=== PATIENT | male | born 1935 | race American Indian/Alaskan Native ===

== ENCOUNTER 2020-05-17 15:26 | Emergency (ER) | payer MEDICARE, OTHER ==
--- NOTE | 2020-05-17 15:34 | Event Note ---
ED Screening Note Date of service: 05/17/20 Time: 15:34 ED Screening Note: Patient presents with hyperglycemia over the past week with no prior history of diabetes. States he was at [facility] recently and was discharged on Metformin but it is still high. States he feels "wobbly". Denies other complaints. Well-appearing, nontoxic, no distress on my exam. This initial assessment/diagnostic orders/clinical plan/treatment(s) is/are subject to change based on patients health status, clinical progression and re- assessment by fellow clinical providers in the ED. Further treatment and workup at subsequent clinical providers discretion. Patient/guardian urged not to elope from the ED as their condition may be serious if not clinically assessed and managed. Initial orders include: Labs
[2020-05-17 16:05] LABS: Basophils % (Auto) 0.5 % (0.0-1.8); Eosinophils # (Auto) 0.1 K/mm3 (0.0-0.4); Eosinophils % (Auto) 1.4 % (0.0-4.3); Hematocrit 42.5 % (35.5-45.6); Hemoglobin 13.5 gm/dl (11.8-15.2); Lymphocytes # (Auto) 1.9 K/mm3 (1.2-5.4); Lymphocytes % (Auto) 19.8 % (13.4-35.0); Mean Corpuscular HGB Conc 32 % (32-34); Mean Corpuscular Volume 75 fl (84-94); Monocytes # (Auto) 0.5 K/mm3 (0.0-0.8); Monocytes % (Auto) 5.9 % (0.0-7.3); Platelet Count 171 K/mm3 (140-440); Red Cell Distribution Width 14.2 % (13.2-15.2)
[2020-05-17 16:24] LABS: Bilirubin,Urine NEG (Negative); Blood,Urine NEG (Negative); Color,Urine Yellow (Yellow); Mucus,Urine FEW /HPF; Protein,Urine <15 mg/dL mg/dL (Negative); Urobilinogen,Urine < 2.0 mg/dL (<2.0)
[2020-05-17 16:26] LABS: Alanine Aminotransferase 49 units/L (7-56); Albumin 4.4 g/dL (3.9-5); BUN/Creatinine Ratio 19; Blood Urea Nitrogen 27 mg/dL (9-20); Calcium 9.7 mg/dL (8.4-10.2); Hemolysis Index 3
[2020-05-17] MEDS ORDERED: INSULIN REGULAR, HUMAN 100 UNITS/1 ML IV ONE (17:08)
[2020-05-17] MEDS ORDERED: SODIUM CHLORIDE 0.9% 1000 ML 1,000 ML IV ONE (17:08)
--- NOTE | 2020-05-17 17:12 | Emergency Department Report ---
ED General Adult HPI - General Chief complaint: Hyperglycemia Stated complaint: HIGH BLOOD SUGAR Time Seen by Provider: 05/17/20 15:33 Source: patient Mode of arrival: Ambulatory Limitations: No Limitations - History of Present Illness Initial comments: 84-year-old pleasant -[place] male presents emerge department complaining of continued hyperglycemia. To 3 days ago he was at [facility] emergency department where he was found to have diabetes and he was treated in the emergency department with with insulin he was discharged home on Metformin which he states he is taking 3 Metformin tablets but states his blood sugar has not yet regulated so he came to the emergency department again today to be reevaluated. He reports no fever, chills, sweats but does have little bit of fatigue. Reports no chest pain or palpitations. No nausea or vomiting just wanted to make sure that he was doing the right things and had made the right steps today. That you follow-up with his primary care provider for further management and treatment options of the diabetes Improves with: none, immobilization Worsens with: none, eating Associated Symptoms: malaise. denies: cough, diaphoresis, loss of appetite, nausea/vomiting, syncope, weakness - Related Data Allergies Allergy/AdvReac Type Severity Reaction Status Date / Time No Known Allergies Allergy Unverified 05/17/20 15:28 ED Review of Systems ROS: Stated complaint: HIGH BLOOD SUGAR Other details as noted in HPI Comment: All other systems reviewed and negative ED Past Medical Hx - Past Medical History Previous Medical History?: No - Surgical History Past Surgical History?: No - Social History Smoking Status: Never Smoker Substance Use Type: None ED Physical Exam - General Limitations: No Limitations General appearance: alert, in no apparent distress, other (Alert grays. Parrish is ambulatory under his own power no limitations) - Head Head exam: Present: atraumatic, normocephalic - Eye Eye exam: Present: normal appearance - ENT ENT exam: Present: mucous membranes moist - Neck Neck exam: Present: normal inspection - Respiratory Respiratory exam: Present: normal lung sounds bilaterally. Absent: respiratory distress - Cardiovascular Cardiovascular Exam: Present: regular rate, normal rhythm. Absent: systolic murmur, diastolic murmur, rubs, gallop - GI/Abdominal GI/Abdominal exam: Present: soft, normal bowel sounds - Rectal Rectal exam: Present: deferred - Extremities Exam Extremities exam: Present: normal inspection - Back Exam Back exam: Present: normal inspection - Neurological Exam Neurological exam: Present: alert, oriented X3, normal gait - Psychiatric Psychiatric exam: Present: normal affect, normal mood - Skin Skin exam: Present: warm, dry, intact, normal color. Absent: rash ED Course Vital Signs 05/17/20 05/17/20 15:34 22:00 Temperature 98.0 F 97.4 F L Pulse Rate 103 H 87 Respiratory 18 16 Rate Blood Pressure 156/80 Blood Pressure 129/79 [Left] O2 Sat by Pulse 99 98 Oximetry ED Medical Decision Making - Lab Data Result diagrams: 05/17/20 15:39 05/17/20 15:39 - Medical Decision Making This patient is a 84-year-old -Lithuanian male diagnosed with diabetes, presenting with apparent acute hyperglycemia. Differential diagnosis includes new onset diabetes, steroid or other medication use, secondary ingestion, reactive hyper glycemia. Consideration considered DKA versus hyperosmolar nonketotic state, sepsis is possible etiology of patient's current presentation. However given the current history and physical including current glucose level the current presentation is consistent with acute asymptomatic hyperglycemia. P radha to treat supportively no indication for further work-up at this time. Plan supportive care, was placed in a stretcher started on IV fluids and provided with insulin IV x3 units and reevaluated our following completion was found to have a blood sugar did decrease down to 230 Critical care attestation.: If time is entered above; I have spent that time in minutes in the direct care of this critically ill patient, excluding procedure time. ED Disposition Clinical Impression: Hyperglycemia due to type 2 diabetes mellitus Disposition: DC-01 TO HOME OR SELFCARE Is pt being admited?: No Does the pt Need Aspirin: No Condition: Stable Instructions: Complementary and Alternative Medical Therapies for Diabetes, Hyperglycemia, Type 2 Diabetes Mellitus, Self Care, Adult, Type 2 Diabetes Mellitus, Self Care, Adult, Chja-ce-Gjog, Prediabetes Eating Plan, Preventing Diabetes Mellitus Complications, Blood Glucose Monitoring, Adult, Diabetes Mellitus Type 2 in Adults (ED) Additional Instructions: Please take your medication as prescribed and follow up with your PCP for defini tive management of your DM Referrals: [facility] [Provider Group] - 3-5 Days YUMIKO GREENE MD [Staff Physician] - 3-5 Days PRIMARY MD JUAN [Primary Care Provider] - 3-5 Days
[2020-05-17 22:31] VITALS: BP 129/79
== END 2020-05-17 22:26 | disposition home or self-care (01) ==
LOC: ED 15:26
DX: E11.65 Type 2 diabetes mellitus with hyperglycemia (principal)
CPT/HCPCS: 36415; 80053; 81001; 82010; 82962; 85025; 96361; 96374; 99283; J7030; J1815

== ENCOUNTER 2021-01-13 14:50 | Emergency (ER) | payer MEDICARE ==
[2021-01-13 16:36] VITALS: BP 111/67
--- NOTE | 2021-01-13 17:15 | Emergency Department Report ---
ED General Adult HPI - General Chief complaint: Hyperglycemia Stated complaint: HYPERGLYCEMIA Time Seen by Provider: 01/13/21 16:59 Source: patient Mode of arrival: Ambulatory Limitations: No Limitations - History of Present Illness Initial comments: Patient presents secondary to elevated blood sugar. He has recently been on a Medrol Dosepak because of an illness. He has bilateral shoulder pain. He had been seen by orthopedic surgery and was given steroid injections in both shoulders. He was also given a Medrol Dosepak and an NSAID. Patient states that the right shoulder has continued to hurt. The left shoulder is gotten better. His sugars were elevated. That made him apprehensive. He decided to come here. He is also requesting that we write him a prescription for ibuprofen as that works better for pain for him than the diclofenac he was prescribed. Patient does not have polydipsia or polyuria at this point. He has no fevers or chills. There is no cough or congestion. The pain in the right shoulder just did not get any better with the steroid injection. The pain in the left shoulder did. There is no new trauma. The pain in the shoulder is described as a constant ache that is worse with any kind of movement. - Related Data Previous Rx's Medication Instructions Recorded Last Taken Type Ibuprofen [Motrin 400 MG tab] 400 mg PO Q8H PRN #30 tablet 01/13/21 Unknown Rx Allergies Allergy/AdvReac Type Severity Reaction Status Date / Time No Known Allergies Allergy Unverified 05/17/20 15:28 ED Review of Systems ROS: Stated complaint: HYPERGLYCEMIA Other details as noted in HPI Comment: All other systems reviewed and negative Constitutional: denies: fever Eyes: denies: vision change ENT: denies: throat pain Respiratory: denies: cough Cardiovascular: denies: chest pain Endocrine: denies: unexplained weight loss Gastrointestinal: denies: abdominal pain Genitourinary: denies: dysuria Musculoskeletal: as per HPI Skin: denies: rash Hematological/Lymphatic: denies: easy bruising ED Past Medical Hx - Past Medical History Previous Medical History?: Yes Additional medical history: Chronic shoulder pain and arthritis - Surgical History Past Surgical History?: No - Family History Family history: no significant - Social History Smoking Status: Never Smoker Substance Use Type: None - Medications Home Medications: Home Medications Medication Instructions Recorded Confirmed Last Taken Type Ibuprofen [Motrin 400 MG tab] 400 mg PO Q8H PRN #30 tablet 01/13/21 Unknown Rx ED Physical Exam - General Limitations: No Limitations, Other (Pulse ox was noted and normal. He is not hypoxic.) General appearance: alert, in no apparent distress - Head Head exam: Present: atraumatic, normocephalic, normal inspection - Eye Eye exam: Present: normal appearance, EOMI. Absent: scleral icterus - ENT ENT exam: Present: normal exam, normal orophraynx, normal external ear exam - Neck Neck exam: Present: normal inspection. Absent: meningismus - Respiratory Respiratory exam: Present: normal lung sounds bilaterally. Absent: respiratory distress - Cardiovascular Cardiovascular Exam: Present: regular rate, normal rhythm - GI/Abdominal GI/Abdominal exam: Present: soft. Absent: tenderness - Extremities Exam Extremities exam: Present: normal capillary refill, other (There is limited range of motion of the right shoulder. This is chronic.) - Back Exam Back exam: Absent: CVA tenderness (R), CVA tenderness (L) - Neurological Exam Neurological exam: Present: alert, oriented X3, normal gait. Absent: motor sensory deficit - Psychiatric Psychiatric exam: Present: normal affect, normal mood - Skin Skin exam: Present: warm, dry ED Course Vital Signs 01/13/21 16:29 Temperature 99.1 F Pulse Rate 111 H Respiratory 16 Rate Blood Pressure 111/67 [Left] O2 Sat by Pulse 96 Oximetry - Reevaluation(s) Reevaluation #1: 01/13/21 23:42 Glucose have been noted. Patient was discharged. ED Medical Decision Making - Medical Decision Making Patient presented secondary to elevated blood sugar. This was felt to be due to steroids. The sugar that we have obtained today is lower than what he had been at home. He does not seem to have polydipsia or polyuria suggestive of new onset diabetes. He is complaining of ongoing pain in the right shoulder. Why the steroid injection failed to help his pain on the right I do not know. He can follow with his orthopedic surgeon. There is no new trauma to suggest fracture. Has no fevers. I do not believe this represents a septic arthritis. Critical care attestation.: If time is entered above; I have spent that time in minutes in the direct care of this critically ill patient, excluding procedure time. ED Disposition Clinical Impression: Hyperglycemia, Right shoulder pain Disposition: HOME / SELF CARE / HOMELESS Is pt being admited?: No Condition: Stable Instructions: Shoulder Pain Additional Instructions: Drink plenty water. Have a regular diet. Use ice on your shoulder. Follow-up with your orthopedic surgeon. Return for problems. Prescriptions: Ibuprofen [Motrin 400 MG tab] 400 mg PO Q8H PRN #30 tablet PRN Reason: Pain, Moderate (4-6) Referrals: PRIMARY CARE, [Primary Care Provider] - 3-5 Days
== END 2021-01-13 17:26 | disposition home or self-care (01) ==
LOC: ED 14:50
DX: R73.9 Hyperglycemia, unspecified (principal); M25.511 Pain in right shoulder; M25.512 Pain in left shoulder; M19.90 Unspecified osteoarthritis, unspecified site
CPT/HCPCS: 82962; 99282